=== PATIENT | female | born 1945 | race Caucasian/White ===

== ENCOUNTER 2022-03-15 10:23 | Day surgery (SDC) | payer MEDICARE, SELFPAY ==
[2022-03-08 11:15] VITALS: BMI 21.9
--- NOTE | 2022-03-14 12:22 | P.CONAN_ITS ---
Documented by User: Trina Tavarez NP 03/14/22 12:22 HPI - Anesthesia Eval Consult details Narrative: 76yo F for Bilateral Eye Muscle Lateral Rectus Recession [facility] Past Medical History Medical History Arthritis Depression Hypothyroid Surgical History Surgical History H/O colonoscopy History of total right hip arthroplasty Hx of bilateral oophorectomy Social History Social History Are you a primary childcare teacher to a significant other at home: No Do you presently have visiting nurse or other home services: No Patient Tobacco Use Status: Never used Tobacco Use of substances other than those prescribed or required for medical reasons: Yes Substance Use Frequency: Monthly Have you been hit, kicked, punched, or otherwise hurt by someone within the past year? If so, by whom?: No Are you DNR?: No Advance Directives: No Advance Directives Information Provided: Yes (brochure mailed) Advance Directives on File: No Recently lost weight without trying: No Eating poorly because of decreased appetite: No Poor oral hygiene: No Meds Allergies Allergy/AdvReac Type Severity Reaction Status Date / Time cephalexin [From Keflex] Allergy Severe hives/throat Verified 03/15/22 10:38 swelling Home Medications Medication Instructions Recorded Confirmed Last Taken Type duloxetine 60 mg capsule,delayed 2 cap PO DAILY 03/08/22 03/08/22 03/15/22 08:30 History release levothyroxine 125 mcg tablet 1 tab PO DAILY 03/08/22 03/08/22 03/15/22 08:30 History Exam Exam Date and Time: March 14, 2022 1222 Height,Weight and Vital Signs: Height 5 ft 8 in Weight 65.317 kg Assessment and Plan Assessment Anesthesia Assessment: Chart Reviewed Documented by User: Samira Valles MD 03/15/22 13:18 [facility] Past Medical History Medical History Arthritis Depression Hypothyroid Functional capacity: uses cane/walker Surgical History Surgical History H/O colonoscopy History of total right hip arthroplasty Hx of bilateral oophorectomy History of Problems with Anesthesia: No Social History Social History Are you a primary childcare teacher to a significant other at home: No Do you presently have visiting nurse or other home services: No Patient Tobacco Use Status: Never used Tobacco Use of substances other than those prescribed or required for medical reasons: Yes Substance Use Frequency: Monthly Have you been hit, kicked, punched, or otherwise hurt by someone within the past year? If so, by whom?: No Are you DNR?: No Advance Directives: No Advance Directives Information Provided: Yes (brochure mailed) Advance Directives on File: No Recently lost weight without trying: No Eating poorly because of decreased appetite: No Poor oral hygiene: No Meds Allergies Allergy/AdvReac Type Severity Reaction Status Date / Time cephalexin [From Keflex] Allergy Severe hives/throat Verified 03/15/22 10:38 swelling Home Medications Medication Instructions Recorded Confirmed Last Taken Type duloxetine 60 mg capsule,delayed 2 cap PO DAILY 03/08/22 03/08/22 03/15/22 08:30 History release levothyroxine 125 mcg tablet 1 tab PO DAILY 03/08/22 03/08/22 03/15/22 08:30 History Exam Airway Mallampati Class: III (Small mouth opening, prominent central upper incisors) TM Dist: >3cm Neck ROM: Full Loose/Missing/Broken Teeth: No Heart: RRR Lungs: CTA Assessment and Plan Assessment Anesthesia Assessment: Anesthesia Plan Discussed Final Anesthetic Review History of Problems with Anesthesia: No NPO: Yes ASA Class: II Final Preanesthetic Review: Meds/Allgs Chart Reviewed, Consent Obtained/Reviewed and Anes Risks/Benef Reviewed Patient Risk: Low Procedure Risk: Low Anesthetic Plan Anesthetic Plan: GA Disposition: Standard PACU
[2022-03-15] VITALS (9 sets, daily range): BP systolic 134–158; BP diastolic 74–86; PULSE 85–120; RESP 10–20; TEMP 36.3–36.9; O2SAT 97–100
[2022-03-15] MEDS: Lactated Ringers 1,000 ML 100 ML IVCONT (10:57)
--- NOTE | 2022-03-15 13:47 | HO.OPHTHAL ---
Ophthalmology Operative Note Date of Service: 03/15/22 Narrative: Diagnosis bilateral heavy eye syndrome. Procedure bilateral superior to lateral rectus myopexies. Surgeon Dr. Darnell anesthesia general complications none. The patient is brought to the operating room placed under general anesthesia. The patient's eyes were prepped and draped in the usual sterile ophthalmic fashion. the lid speculum was placed in the right eye and a limbal peritomy was created from the 9:00 to 12:00 positions. The lateral rectus muscle was hooked and a 5 0 Mersilene suture was placed through the superior 20% of the belly of the muscle 14 mm behind its insertion. The superior rectus muscle was then hooked and dissected free of the overlying levator complex and underlying superior oblique tendon and the other half of the 5 0 Mersilene suture was placed through 20% of the temporal belly of that muscle 14mm from the insertion. Using the Mersilene suture the edges of both muscles were brought into contact to create the myopexy and tied with the Mersilene suture. Conjunctiva was closed with interrupted Vicryl sutures. An identical procedure was then performed on the left eye. The patient was then awoken from general anesthesia and discharged to postoperative recovery in good condition.
[2022-03-15] MEDS: Tetracaine HCl/PF 0.5% Oph Sol 4 ML DROPS 1 DROP EYE-BOTH (15:13)
== END 2022-03-15 15:45 | disposition home or self-care (01) ==
PROVIDERS: PCP Nurse Practitioner Adult Health; Visit Provider Ophthalmology
PROC: (CPT 67311; principal; 2022-03-15 13:00)
DX: H53.2 Diplopia (principal); H50.89 Other specified strabismus; E03.8 Other specified hypothyroidism; E06.3 Autoimmune thyroiditis; F32.A Depression, unspecified; M19.042 Primary osteoarthritis, left hand; M19.041 Primary osteoarthritis, right hand; Z79.899 Other long term (current) drug therapy
CPT/HCPCS: 67311; 67314; J1885; J2250; J3010